=== PATIENT | female | born 1990 | race Caucasian/White ===

== ENCOUNTER → 2016-04-10 | Outpatient (CLI) | payer BC ==
[2016-04-10 16:37] LABS: BASO % 0.3 % (0.0-1.0); EOS % 0.4 % (0.0-3.0); LARGE UNSTAINED CELL # 0.1 K/mm3 (0.0-0.4); LARGE UNSTAINED CELL % 1.5 % (0.0-4.0); LYMPH # 1.9 K/mm3 (1.5-6.5); LYMPH % 19.7 % (24.0-44.0); MEAN CORPUSCULAR HEMOGLOBIN 32.1 pg (27.0-33.0); MEAN CORPUSCULAR HGB CONC 35.6 g/dl (32.0-36.5); MONO # 0.5 K/mm3 (0.0-0.8); NEUTROPHILS # 6.5 K/mm3 (1.8-7.7); PLATELET COUNT, AUTOMATED 358 k/mm3 (150-450); RED CELL DISTRIBUTION WIDTH 12.3 % (11.5-14.5)
[2016-04-13 10:39] LABS: HBsAg Prenatal NEGATIVE (NEGATIVE)
[2016-04-13 14:18] LABS: CONTROL LINE INT CTR LINE PRESENT; HIV SCRN NEGATIVE (NEGATIVE); HIV SCRN1 NEGATIVE (NEGATIVE)
== END ==
LOC: M LAB 15:51
PROVIDERS: ATTEND Advanced Practice Midwife
DX: Z34.81 Encounter for supervision of other normal pregnancy, first trimester (principal)

== ENCOUNTER → 2016-06-22 | Outpatient (CLI) | payer BC ==
--- NOTE | 2016-06-23 04:14 | REP ---
Clinical: Anatomical evaluation. Comparison: None . Findings: Examination demonstrates a single live intrauterine in breech presentation. motion is identified by technologist. Placenta is noted posteriorly and grade zero without evidence for placenta previa or abruption. Amniotic fluid volume is normal. Cervix measures 4.3 cm in length and appears closed. No evidence for nuchal cord. Gestational age by LMP 19 weeks 4 days with IVON 11/12/2016 . Gestational age by current measurements 19 weeks 6 days with IVON 11/10/2016 . FHR equals 149 beats per minute. BPD 4.4 cm 19 weeks 2 days HC 17.0 cm 19 weeks 4 days AC 14.4 cm 19 weeks 5 days FL 3.3 cm 20 weeks 1 day HL 3.2 cm 20 weeks 6 days HC/AC ratio 1.18 Estimated weight 319 grams ( 57th percentile). Anatomical assessment demonstrates normal structures including cranium, choroid plexus, cavum, cerebellum/posterior fossa, facial features, lungs, four-chamber heart/ventricular outflow tracts, diaphragm, stomach, cord insertion/three-vessel cord, kidneys/bladder, spine, and extremities. Impression: Single live intrauterine in breech presentation demonstrating appropriate interval growth. Anatomical assessment is complete and normal. Signed by Ben Larry MD 06/23/2016 04:06 A
== END ==
LOC: M RAD 09:59
PROVIDERS: ATTEND Obstetrics & Gynecology
DX: Z34.82 Encounter for supervision of other normal pregnancy, second trimester (principal); Z3A.19 19 weeks gestation of pregnancy

== ENCOUNTER → 2016-08-03 | Outpatient (CLI) | payer BC, OTHER ==
[2016-08-03 13:49] LABS: MEAN CORPUSCULAR HEMOGLOBIN 32.5 pg (27.0-33.0); MEAN CORPUSCULAR HGB CONC 34.9 g/dl (32.0-36.5); RED CELL DISTRIBUTION WIDTH 12.7 % (11.5-14.5)
== END ==
LOC: M LAB 11:40
PROVIDERS: ATTEND Obstetrics & Gynecology
DX: Z34.82 Encounter for supervision of other normal pregnancy, second trimester (principal)

== ENCOUNTER → 2016-08-27 | Outpatient (CLI) | payer BC, OTHER ==
[~2016-08-27] MED LIST: MOTR200T44 PO; PRENTAB31 PO; TYLE325C PO
[2016-08-27 13:32] LABS: FREE T4 0.87 NG/DL (0.76-1.46)
== END ==
LOC: M SMT 09:09
PROVIDERS: ATTEND Advanced Practice Midwife
DX: F41.9 Anxiety disorder, unspecified (principal)

== ENCOUNTER → 2016-10-23 | Outpatient (REF) | payer BC, OTHER, MEDICARE | LOC: M LAB REF 13:07 | PROVIDERS: ATTEND Advanced Practice Midwife | DX: Z34.83 Encounter for supervision of other normal pregnancy, third trimester (principal); Z3A.00 Weeks of gestation of pregnancy not specified ==

== ENCOUNTER → 2016-11-03 | Outpatient (REF) | payer OTHER | LOC: M SFHCCAPE 15:05 | PROVIDERS: ATTEND Physician Assistant | DX: J02.9 Acute pharyngitis, unspecified (principal) ==

== ENCOUNTER 2016-11-17 20:41 | Inpatient (IN) | payer BC, OTHER ==
[~2016-11-17] VITALS: Ht 162.6 cm; Wt 108.0 kg
[2016-11-17] MEDS ORDERED: PENICILLIN G POTASSIUM IV 5 MU in D5W MINI-BAG PLUS 100 ML IV STA ×2 (21:07→22:53)
[2016-11-17 21:28] VITALS: BP 113/63
--- NOTE | 2016-11-17 21:41 | HPE ---
DATE OF ADMISSION: 11/17/2016 REASON FOR ADMISSION: Labor, ruptured membranes. HISTORY OF PRESENT ILLNESS: Ms. Jacinto is a 26-year-old, 1, who presented at 40 weeks 4 days estimated gestational age by her first trimester ultrasound, who presents with complaints of leakage of clear fluid that occurred at 8:30 this evening. She reports irregular contractions. Denies any vaginal bleeding. Her course has been unremarkable. She initiated care in her first trimester and has been appropriate throughout. PHYSICAL EXAMINATION: Vital signs: STABLE. She is afebrile. She has a category 1 tracing. Contractions on tocometer. General appearance: No acute distress. Lungs: Clear to auscultation bilaterally. Cardiovascular: Heart regular rate and rhythm. Abdomen: Gravid. Her estimated weight 3600 grams. Her cervical exam , grossly ruptured. PAST MEDICAL HISTORY: None. PAST SURGICAL HISTORY: None. PAST OBSTETRICAL HISTORY: She is 1. SOCIAL HISTORY: She denies any alcohol, tobacco or drug use during the . MEDICATIONS: - vitamins ALLERGIES: She has no known drug allergies. LABORATORY DATA: Blood type is A positive, antibody screen is negative. Rubella is immune, RPR nonreactive. Hepatitis surface antigen is negative. HIV is negative. Hepatitis C is nonreactive. Chlamydia and Gonorrhea screens are negative. She had a normal 1 hour Glucola. She is Group B streptococcus (GBS) positive. ASSESSMENT: 1. Ms. Jacinto is a 26-year-old 1 at 40 weeks 4 days estimated gestational age with premature rupture of membranes. 2. Reassuring status with a category 1 heart rate tracing. PLAN: Admit to labor and delivery. Complete blood count (CBC), RPR, type and screen. Penicillin for GBS positive. The patient is a good candidate for an epidural. Anticipate spontaneous vaginal delivery. [facility]
[2016-11-17 21:48] LABS: MEAN CORPUSCULAR HEMOGLOBIN 32.7 pg (27.0-33.0); MEAN CORPUSCULAR VOLUME 89.1 fl (80.0-96.0); RED CELL DISTRIBUTION WIDTH 12.2 % (11.5-14.5); WHITE BLOOD COUNT 10.9 K/mm3 (4.0-10.0)
[2016-11-17 22:04] LABS: MEAN CORPUSCULAR HGB CONC 36.7 g/dl (32.0-36.5)
[2016-11-17] MEDS ORDERED: OXYTOCIN DRIP 30 UNITS in APPROPRIATE DILUENT 1 EA IV SCH (23:00)
[2016-11-17] MEDS: LR 1,000 ML IV SCH (23:05)
[2016-11-17 23:22] VITALS: BP 119/59
[2016-11-18] VITALS (35 sets, daily range): BP systolic 97–125; BP diastolic 55–73
[2016-11-18] MEDS ORDERED: PENICILLIN G POTASSIUM IV 2.5 MU in D5W 100 ML IV SCH (01:15)
[2016-11-18] MEDS: PENICILLIN G POTASSIUM IV 2.5 MU in D5W 100 ML IV SCH ×5 (03:17→19:33)
[2016-11-18] MEDS: LR 1,000 ML IV SCH (08:14)
[2016-11-18] MEDS ORDERED: ADACEL/BOOSTRIX VACCINE (DIPHTH/PERTUSS/ACELL/TETANUS)0.5ML SYR (90715) IM ONE (09:00)
[2016-11-18] MEDS: miSOPROStol 50 MCG 1/2 TAB (S0191) PO SCH ×2 (12:45→17:42)
[2016-11-18] MEDS ORDERED: OXYTOCIN DRIP 30 UNITS in APPROPRIATE DILUENT 1 EA IV SCH (22:00)
[2016-11-19] VITALS (53 sets, daily range): BP systolic 78–126; BP diastolic 40–85
[2016-11-19] MEDS: PENICILLIN G POTASSIUM IV 2.5 MU in D5W 100 ML IV SCH ×3 (01:21→08:17)
[2016-11-19] MEDS ORDERED: FENTANYL 2MCG/ML ROPIVACAINE 0.2% IN 0.9% NACL 200ML IVBAG As Ordered ONE (03:23)
[2016-11-19] MEDS ORDERED: EPIDURAL COMMENT XX SCH (03:54)
[2016-11-19] MEDS ORDERED: FENTANYL/ROPIVACAINE/NACL BAG 200 ML EPIDURAL SCH (03:54)
[2016-11-19] MEDS ORDERED: EPIDURAL/PCA KEYS XX PRN (03:54)
[2016-11-19] MEDS ORDERED: REFRIGERATOR IV KEYS XX PRN (03:54)
[2016-11-19] MEDS ORDERED: LACTATED RINGER'S 1000 ML IV PRN (03:54)
[2016-11-19] MEDS ORDERED: NALOXONE INJ 0.4 MG/1 ML VIAL (J2310) IV PRN (03:54)
[2016-11-19] MEDS ORDERED: ONDANSETRON 4MG/2ML VIAL (J2405) IV PRN ×2 (03:54→11:30)
[2016-11-19] MEDS ORDERED: diphenhydrAMINE INJ 50MG/ML VIAL (J1200) IV PRN (03:54)
[2016-11-19] MEDS ORDERED: ePHEDrine SULFATE 25 MG/5 ML(5MG/ML) SYRINGE As Ordered ONE (04:36)
[2016-11-19] MEDS: ePHEDrine SULFATE 25 MG/5 ML(5MG/ML) SYRINGE IV PRN ×3 (04:45→06:05)
[2016-11-19] MEDS: LR 1,000 ML IV SCH ×3 (08:17→16:35)
[2016-11-19] MEDS ORDERED: RHOGAM 300 MCG (1500 IU) INJ (J2790) IM SCH (09:00)
[2016-11-19] MEDS ORDERED: MEASLES,MUMPS,RUBELLA VACCINE INJ (MMR-II) (90707) SC SCH (09:00)
[2016-11-19] MEDS ORDERED: OXYTOCIN DRIP 30 UNITS in APPROPRIATE DILUENT 1 EA IV SCH (11:27)
[2016-11-19] MEDS ORDERED: DIBUCAINE 1% OINTMENT 30GM TOP PRN (11:30)
[2016-11-19] MEDS ORDERED: PROMETHAZINE 25 MG TAB PO PRN (11:30)
[2016-11-19] MEDS ORDERED: ACETAMINOPHEN 500 MG TAB PO PRN (11:30)
[2016-11-19] MEDS ORDERED: DOCUSATE SODIUM 100 MG CAP PO PRN (11:30)
[2016-11-19] MEDS: IBUPROFEN 800 MG TAB PO PRN ×2 (13:14→23:19)
[2016-11-19] MEDS: PRENATAL VITAMINS CHEWABLE TABLET PO SCH (16:22)
[2016-11-20] MEDS: LR 1,000 ML IV SCH ×2 (03:00→07:31)
[2016-11-20 06:44] VITALS: BP 105/54
[2016-11-20] MEDS: IBUPROFEN 800 MG TAB PO PRN ×2 (08:04→17:50)
[2016-11-20] MEDS: PRENATAL VITAMINS CHEWABLE TABLET PO SCH (08:04)
[2016-11-20 18:15] VITALS: BP 108/63
[2016-11-21 06:00] VITALS: BP 112/56
[2016-11-21] MEDS: IBUPROFEN 800 MG TAB PO PRN (08:23)
[2016-11-21] MEDS: PRENATAL VITAMINS CHEWABLE TABLET PO SCH (08:23)
[2016-11-21] MEDS ORDERED: ADACEL/BOOSTRIX VACCINE (DIPHTH/PERTUSS/ACELL/TETANUS)0.5ML SYR (90715) IM ONE (08:30)
[2016-11-21] MEDS ORDERED: INFLUENZA QUADRIVALENT PF VACCINE 0.5ML SYRINGE (90686) IM ONE (08:30)
[2016-11-21] MEDS ORDERED: PRENTAB31 PO (10:42)
[2016-11-21] MEDS ORDERED: TYLE325C PO (10:43)
[2016-11-21] MEDS ORDERED: MOTR200T44 PO (10:43)
== END 2016-11-21 14:25 | disposition home or self-care (01) | DRG 560 ==
LOC: M LDO 20:41 → M LDI 20:54 → M OBS 11-19 14:21
PROVIDERS: ADMIT Obstetrics & Gynecology; ATTEND Obstetrics & Gynecology
PROC: 10E0XZZ Delivery of Products of Conception, External Approach (ICD-10-PCS; principal; 2016-11-19)
PROC: 0HQ9XZZ Repair Perineum Skin, External Approach (ICD-10-PCS; 2016-11-19)
DX: O48.0 Post-term pregnancy (principal); O99.824 Streptococcus B carrier state complicating childbirth; Z37.0 Single live birth; Z3A.40 40 weeks gestation of pregnancy; Z79.899 Other long term (current) drug therapy; O70.0 First degree perineal laceration during delivery; O69.82X0 Labor and delivery complicated by other cord entanglement, without compression, not applicable or unspecified

== ENCOUNTER 2017-01-08 11:05 | Day surgery (SDC) | payer BC, OTHER ==
[~2017-01-08] VITALS: Ht 162.6 cm; Wt 99.7 kg
[2017-01-08] MEDS ORDERED: LR 1,000 ML IV ONE (11:30)
[2017-01-08 12:04] LABS: CONTROL LINE UCG INT CTR LINE PRESENT
[2017-01-08] MEDS ORDERED: MIDAZOLAM INJ 2 MG/2 ML VIAL (J2250) As Ordered ONE (12:58)
[2017-01-08] MEDS ORDERED: fentaNYL 100 MCG/2 ML INJECTION (J3010) As Ordered ONE ×3 (12:58→14:59)
[2017-01-08] MEDS ORDERED: BUPIVACAINE/EPIN 0.25% 30 ML VIAL As Ordered ONE (13:27)
[2017-01-08] MEDS ORDERED: KETOROLAC 60 MG/2 ML VIAL (J1885) As Ordered ONE (14:12)
[2017-01-08] MEDS ORDERED: ROCURONIUM BROMIDE 50 MG/5 ML VIAL/SYRINGE As Ordered ONE (14:12)
[2017-01-08] MEDS ORDERED: ONDANSETRON 4MG/2ML VIAL (J2405) As Ordered ONE ×2 (14:12→14:58)
[2017-01-08] MEDS ORDERED: GLYCOPYRROLATE INJ 0.2 MG/ML 2 ML VIAL As Ordered ONE ×2 (14:12→14:34)
[2017-01-08] MEDS ORDERED: LIDOCAINE 2% INJ 100 MG/5 ML SDV (FOR ANES.) As Ordered ONE (14:12)
[2017-01-08] MEDS ORDERED: dexameTHASONE 4 MG/ML 1ML VIAL (J1100) As Ordered ONE (14:12)
[2017-01-08] MEDS ORDERED: NEOSTIGMINE 10 MG/10 ML VIAL (J2710) As Ordered ONE ×2 (14:12→14:34)
[2017-01-08] MEDS ORDERED: PROPOFOL 200 MG/20 ML VIAL As Ordered ONE (14:12)
[2017-01-08] MEDS ORDERED: PERCOCET 5MG/325MG TAB As Ordered ONE (14:59)
[2017-01-08] MEDS: fentaNYL 100 MCG/2 ML INJECTION (J3010) IV PRN ×4 (15:02→15:18)
[2017-01-08] MEDS: PERCOCET 5MG/325MG TAB PO PRN ×2 (15:07→15:37)
[2017-01-08] MEDS ORDERED: METOCLOPRAMIDE INJ 10MG/2ML VIAL (J2765) IV PRN (15:15)
[2017-01-08] MEDS ORDERED: NORCO, ANEXSIA 5/325MG TABLET (HYDROcodone/ACETAMINOPHEN) PO PRN (15:15)
[2017-01-08] MEDS ORDERED: LR 1,000 ML IV SCH (15:15)
[2017-01-08] MEDS ORDERED: ONDANSETRON 4MG/2ML VIAL (J2405) IV PRN (15:15)
[2017-01-08] MEDS ORDERED: HYDROmorphone HCL 1 MG/ML SYRINGE (J1170) As Ordered ONE (15:47)
[2017-01-08] MEDS: HYDROmorphone HCL 1 MG/ML SYRINGE (J1170) IV PRN ×7 (15:50→16:51)
[2017-01-08 20:00] VITALS: BP 128/58
--- NOTE | 2017-01-10 08:32 | RO ---
DATE OF PROCEDURE: 01/08/2017 PREOPERATIVE DIAGNOSIS: Umbilical hernia. POSTOPERATIVE DIAGNOSIS: Umbilical hernia. PROCEDURE: Laparoscopic umbilical hernia repair. SURGEON: Dr. Rudy Castro ACCESSIONER: None. ANESTHESIA: General. ESTIMATED BLOOD LOSS: 5 mL. COMPLICATIONS: None. INDICATIONS FOR PROCEDURE: The patient is a 26-year-old female who presents with umbilical hernia . Recommendation to proceed with laparoscopic umbilical possible open repair. Risks and the benefits of the procedure are not limited including bleeding, infection, hernia formation, hernia recurrence, damage to surrounding structure, need for further surgery discussed in detail with the patient. Informed was obtained and the procedure was planned. DESCRIPTION OF PROCEDURE: The patient brought back to operating room 6. After sufficient sedation, the abdomen was sterilely prepped and draped. Next a time-out was done to confirm proper patient and proper procedure. Next, a 5 mm incision was made in the left lower quadrant, Veress needle was inserted and the abdomen was insufflated to 50 mmHg. Next, the Veress needle was removed and a 5 mm Optiview port was used to gain access to the abdomen. Once the abdomen was entered, another 5 mm port was placed in the left lower quadrant. Using Enseal, the peritoneum and preperitoneal fat was dissected circumferentially around the hernia defect and the hernia sac was removed. Next a 9 cm round Parietex mesh had #4-0 Vicryl sutures placed in all four corners. It was rolled up and placed inside the abdomen. Trans-fascial sutures were brought out through the abdominal wall using a Myles-Walter needle and tied in place. Two rows of secure strap tacks were then placed around the perimeter of the mesh to hold it flat. The abdomen was then desufflated. Skin incisions were closed with #4-0 Vicryl subcuticular sutures. The abdomen was cleaned and dried. Steri-Strips, 4x4 and tape were applied thus ending the procedure.
== END 2017-01-08 20:00 | disposition home or self-care (01) ==
LOC: M SDC 11:05
PROVIDERS: ATTEND Surgery
DX: K42.9 Umbilical hernia without obstruction or gangrene (principal)
CPT/HCPCS: 49652; 84703; C1781; J0690; J1100; J1170; J1885; J2250; J2405; J2710; J3010

== ENCOUNTER → 2017-02-19 | Outpatient (REF) | payer BC | LOC: M LAB REF 16:41 | PROVIDERS: ATTEND Physician Assistant | DX: J02.9 Acute pharyngitis, unspecified (principal) ==

== ENCOUNTER → 2017-04-13 | Outpatient (REF) | payer BC, OTHER ==
[2017-04-13 17:59] LABS: BASO % 0.5 % (0.0-1.0); EOS # 0.1 10^3/uL (0.0-0.50); EOS % 1.1 % (0.0-3.0); HEMATOCRIT 41.7 % (36.0-47.0); HEMOGLOBIN 14.2 g/dl (12.0-16.0); IMMATURE GRANULOCYTE % 0.3 % (0-3.0); LYMPH # 2.4 10^3/uL (1.5-6.5); LYMPH % 31.9 % (24.0-44.0); MEAN CORPUSCULAR HEMOGLOBIN 29.4 pg (27.0-33.0); MEAN CORPUSCULAR HGB CONC 34.1 g/dl (32.0-36.5); MEAN CORPUSCULAR VOLUME 86.3 fl (80.0-96.0); MONO # 0.7 10^3/uL (0.0-0.8); MONO % 8.6 % (0.0-5.0); NEUTROPHILS # 4.4 10^3/uL (1.8-7.7); NEUTROPHILS % 57.6 % (36.0-66.0); PLATELET COUNT, AUTOMATED 396 10^3/uL (150-450); RED BLOOD COUNT 4.83 10^6/uL (4.00-5.40); RED CELL DISTRIBUTION WIDTH 12.1 % (11.5-14.5); WHITE BLOOD COUNT 7.6 10^3/uL (4.0-10.0)
[2017-04-13 18:26] LABS: ERYTHROCYTE SEDIMENTATION RATE 9 mm/hr (0-20)
[2017-04-13 19:46] LABS: ALBUMIN 4.1 GM/DL (3.2-5.2); ALBUMIN/GLOBULIN RATIO 1.21 (1.00-1.93); ALKALINE PHOSPHATASE 81 U/L (45-117); ALT/SGPT 23 U/L (12-78); ANION GAP 9 MEQ/L (8-16); AST/SGOT 12 U/L (7-37); BILIRUBIN,TOTAL 0.3 MG/DL (0.2-1.0); BLOOD UREA NITROGEN 15 MG/DL (7-18); C REACTIVE PROTEIN QUANTITATIV < 0.30 MG/DL (0.00-0.30); CALCIUM LEVEL 9.2 MG/DL (8.5-10.1); CARBON DIOXIDE LEVEL 27 MEQ/L (21-32); CHLORIDE LEVEL 106 MEQ/L (98-107); CREATININE FOR GFR 0.56 MG/DL (0.55-1.30); GLOMERULAR FILTRATION RATE > 60.0 (>60); GLUCOSE, FASTING 86 MG/DL (70-100); POTASSIUM SERUM 4.3 MEQ/L (3.5-5.1); SODIUM LEVEL 142 MEQ/L (136-145); THYROID STIMULATING HORMONE 0.982 uIU/ML (0.358-3.740); TOTAL PROTEIN 7.5 GM/DL (6.4-8.2)
== END ==
LOC: M SFHCCAPE 12:18
DX: R42 Dizziness and giddiness (principal)
CPT/HCPCS: 84443

== ENCOUNTER → 2017-04-14 | Outpatient (REF) | payer BC, OTHER | LOC: M SFHCCAPE 13:27 | DX: J02.9 Acute pharyngitis, unspecified (principal) ==

== ENCOUNTER → 2017-12-08 | Outpatient (REF) | payer OTHER | LOC: M LAB REF 16:50 | DX: J02.9 Acute pharyngitis, unspecified (principal) | CPT/HCPCS: 87081 ==

== ENCOUNTER 2018-01-11 11:22 | Inpatient (IN) | payer OTHER ==
[2018-01-11 13:01] LABS: HEMATOCRIT 41.1 % (36.0-47.0); HEMOGLOBIN 14.4 g/dl (12.0-15.5); MEAN CORPUSCULAR HEMOGLOBIN 31.5 pg (27.0-33.0); MEAN CORPUSCULAR VOLUME 89.9 fl (80.0-96.0); PLATELET COUNT, AUTOMATED 363 10^3/uL (150-450); RED BLOOD COUNT 4.57 10^6/uL (4.00-5.40); RED CELL DISTRIBUTION WIDTH 11.7 % (11.5-14.5); WHITE BLOOD COUNT 9.1 10^3/uL (4.0-10.0)
[2018-01-11] MEDS: ACETAMINOPHEN TAB 650MG DOSE (2X325MG) PO (13:16)
[2018-01-11 13:44] LABS: ACETAMINOPHEN LEVEL < 2.0 UG/ML (10.0-30.0); ALBUMIN 3.6 GM/DL (3.2-5.2); ALBUMIN/GLOBULIN RATIO 1.09 (1.00-1.93); ALKALINE PHOSPHATASE 91 U/L (45-117); ALT/SGPT 20 U/L (12-78); ANION GAP 8 MEQ/L (8-16); AST/SGOT 12 U/L (7-37); BILIRUBIN,DIRECT < 0.1 MG/DL (0.0-0.2); BILIRUBIN,TOTAL 0.3 MG/DL (0.2-1.0); BLOOD UREA NITROGEN 12 MG/DL (7-18); CALCIUM LEVEL 8.6 MG/DL (8.5-10.1); CARBON DIOXIDE LEVEL 26 MEQ/L (21-32); CHLORIDE LEVEL 109 MEQ/L (98-107); CREATININE FOR GFR 0.53 MG/DL (0.55-1.30); ETHYL ALCOHOL (ETHANOL) < 0.003 % (0.000-0.010); GLOMERULAR FILTRATION RATE > 60.0 (>60); GLUCOSE, FASTING 86 MG/DL (70-100); POTASSIUM SERUM 3.9 MEQ/L (3.5-5.1); SALICYLATE LEVEL 2.2 MG/DL (5.0-30.0); SODIUM LEVEL 143 MEQ/L (136-145); THYROID STIMULATING HORMONE 0.528 uIU/ML (0.358-3.740); TOTAL PROTEIN 6.9 GM/DL (6.4-8.2)
[2018-01-11 13:48] LABS: CONTROL LINE HCG INT CTR LINE PRESENT; HCG, SERUM QUALITATIVE NEGATIVE (NEGATIVE)
[2018-01-11 13:49] LABS: AMPHETAMINES LEVEL URINE NEGATIVE (NEGATIVE); BARBITURATES URINE NEGATIVE (NEGATIVE); BENZODIAZEPINES URINE NEGATIVE (NEGATIVE); CANNABINOIDS URINE NEGATIVE (NEGATIVE); COCAINE METABOLITE URINE NEGATIVE (NEGATIVE); METHADONE URINE NEGATIVE (NEGATIVE); OPIATES URINE NEGATIVE (NEGATIVE); PHENCYCLIDINE URINE NEGATIVE (NEGATIVE)
[2018-01-11] MEDS ORDERED: MAALOX 30 ML SUSP *UDC PO (16:15)
[2018-01-11] MEDS ORDERED: MOM 30ML SUSPENSION UDC PO (16:15)
[2018-01-11] MEDS: traZODone 50 MG TAB PO (21:52)
[2018-01-12] MEDS: CETIRIZINE (ZyrTEC) 10 MG TAB PO (10:53)
[2018-01-12] MEDS: FLUTICASONE PROP 0.05% NASAL SPRAY 16 GM (FLONASE) NARES (11:21)
[2018-01-12] MEDS: ESCITALOPRAM OXALATE 10 MG TAB (LEXAPRO) PO (12:06)
[2018-01-12] MEDS: traZODone 50 MG TAB PO (23:21)
[2018-01-13] MEDS: CETIRIZINE (ZyrTEC) 10 MG TAB PO (09:06)
[2018-01-13] MEDS: ESCITALOPRAM OXALATE 10 MG TAB (LEXAPRO) PO (09:06)
[2018-01-13] MEDS: FLUTICASONE PROP 0.05% NASAL SPRAY 16 GM (FLONASE) NARES (09:06)
[2018-01-13] MEDS: hydrOXYzine 25 MG TAB PO (13:38)
[2018-01-13] MEDS: ACETAMINOPHEN TAB 650MG DOSE (2X325MG) PO (21:50)
[2018-01-13] MEDS: traZODone 50 MG TAB PO (22:28)
[2018-01-14] MEDS: ESCITALOPRAM OXALATE 10 MG TAB (LEXAPRO) PO (08:18)
[2018-01-14] MEDS: CETIRIZINE (ZyrTEC) 10 MG TAB PO (08:18)
[2018-01-14] MEDS: FLUTICASONE PROP 0.05% NASAL SPRAY 16 GM (FLONASE) NARES (08:18)
[2018-01-14] MEDS: ACETAMINOPHEN TAB 650MG DOSE (2X325MG) PO (13:14)
[2018-01-14] MEDS: traZODone 50 MG TAB PO (23:02)
[2018-01-15] MEDS: FLUTICASONE PROP 0.05% NASAL SPRAY 16 GM (FLONASE) NARES (08:31)
[2018-01-15] MEDS: ESCITALOPRAM OXALATE 10 MG TAB (LEXAPRO) PO (08:31)
[2018-01-15] MEDS: CETIRIZINE (ZyrTEC) 10 MG TAB PO (08:31)
[2018-01-15] MEDS: hydrOXYzine 50 MG TAB PO (08:31)
[2018-01-15] MEDS: PROPRANOLOL 10 MG TAB PO (18:55)
[2018-01-15] MEDS: traZODone 50 MG TAB PO (23:25)
[2018-01-16] MEDS: CETIRIZINE (ZyrTEC) 10 MG TAB PO (08:56)
[2018-01-16] MEDS: ESCITALOPRAM OXALATE 10 MG TAB (LEXAPRO) PO (08:56)
[2018-01-16] MEDS: FLUTICASONE PROP 0.05% NASAL SPRAY 16 GM (FLONASE) NARES (08:57)
[2018-01-16] MEDS: PROPRANOLOL 10 MG TAB PO (22:06)
[2018-01-16] MEDS: traZODone 50 MG TAB PO (23:15)
[2018-01-17] MEDS: CETIRIZINE (ZyrTEC) 10 MG TAB PO (08:06)
[2018-01-17] MEDS: ESCITALOPRAM OXALATE 10 MG TAB (LEXAPRO) PO (08:06)
[2018-01-17] MEDS: FLUTICASONE PROP 0.05% NASAL SPRAY 16 GM (FLONASE) NARES (08:06)
[2018-01-17] MEDS: hydrOXYzine 50 MG TAB PO (12:08)
== END 2018-01-17 12:45 | disposition home or self-care (01) | DRG 885 ==
LOC: M ED 11:22 → M ED INP 16:07 → M PSY 18:39
DX: F33.9 Major depressive disorder, recurrent, unspecified (principal); R45.851 Suicidal ideations; F41.1 Generalized anxiety disorder; Z79.899 Other long term (current) drug therapy; Z97.5 Presence of (intrauterine) contraceptive device; H65.93 Unspecified nonsuppurative otitis media, bilateral

== ENCOUNTER 2018-02-25 17:17 | Emergency (ER) | payer OTHER, MEDICAID ==
[~2018-02-25] VITALS: Ht 162.6 cm; Wt 92.7 kg
[~2018-02-25 17:17] MED LIST changes: +ESCI10TA2 PO; +HYDRO50TAB PO; +MIRE1IUD IU; +PROP10TAB PO; +TRAZO50TA PO; +ZOLO50TA PO
[2018-02-25] MEDS ORDERED: LEXA1TAB PO (17:33)
[2018-02-25 19:07] LABS: INFLUENZA A AMPLIFICATION NEGATIVE (NEGATIVE); INFLUENZA B AMPLIFICATION NEGATIVE (NEGATIVE)
[2018-02-25] MEDS ORDERED: AMOX500C PO (19:41)
[2018-02-25] MEDS ORDERED: AMOXICILLIN 500 MG CAP PO ONE (19:45)
[2018-02-25 19:47] VITALS: BP 123/64
== END 2018-02-25 19:51 | disposition home or self-care (01) ==
LOC: M ED 17:17
DX: J02.0 Streptococcal pharyngitis (principal); J35.1 Hypertrophy of tonsils; B34.9 Viral infection, unspecified; Z79.899 Other long term (current) drug therapy; Z97.5 Presence of (intrauterine) contraceptive device

== ENCOUNTER 2018-03-14 05:56 | Day surgery (SDC) | payer MEDICAID, OTHER, SELFPAY ==
[~2018-03-14] VITALS: Ht 162.6 cm; Wt 94.3 kg
[~2018-03-14 05:56] MED LIST changes: +AMOX500C PO; +LEXA1TAB PO
[2018-03-14] MEDS ORDERED: LIDOCAINE W/EPINEPHRINE 1% 20ML VIAL As Ordered ONE (06:55)
[2018-03-14] MEDS ORDERED: BUPIVACAINE/EPIN 0.5% 30 ML VIAL As Ordered ONE (06:56)
[2018-03-14 06:58] LABS: URINE PREG TEST NEGATIVE (NEGATIVE)
[2018-03-14] MEDS ORDERED: LIDOCAINE 2% INJ 100 MG/5 ML SDV (FOR ANES.) As Ordered ONE (07:20)
[2018-03-14] MEDS ORDERED: dexameTHASONE 4 MG/ML 1ML VIAL (J1100) As Ordered ONE (07:20)
[2018-03-14] MEDS ORDERED: fentaNYL 100 MCG/2 ML INJECTION (J3010) As Ordered ONE ×2 (07:20→08:18)
[2018-03-14] MEDS ORDERED: PROPOFOL 200 MG/20 ML VIAL As Ordered ONE (07:20)
[2018-03-14] MEDS ORDERED: ROCURONIUM BROMIDE 50 MG/5 ML VIAL As Ordered ONE (07:20)
[2018-03-14] MEDS ORDERED: MIDAZOLAM INJ 2 MG/2 ML VIAL (J2250) As Ordered ONE (07:21)
[2018-03-14] MEDS ORDERED: ONDANSETRON 4MG/2ML VIAL (J2405) As Ordered ONE (07:58)
[2018-03-14] MEDS ORDERED: PERCOCET 5MG/325MG TAB As Ordered ONE (08:32)
[2018-03-14] MEDS: PERCOCET 5MG/325MG TAB PO PRN ×2 (08:35→09:46)
[2018-03-14] MEDS ORDERED: GLYCOPYRROLATE INJ 0.2 MG/ML 2 ML VIAL As Ordered ONE (08:46)
[2018-03-14] MEDS ORDERED: fentaNYL 100 MCG/2 ML INJECTION (J3010) IV PRN (09:15)
[2018-03-14] MEDS ORDERED: PERCOCET 5MG/325MG TAB PO PRN (09:15)
[2018-03-14] MEDS ORDERED: HYDROMORPHONE HCL 0.5 MG/ 0.5 ML SYRINGE (J1170 PER 1) IV PRN (09:15)
[2018-03-14] MEDS ORDERED: NORCO, ANEXSIA 5/325MG TABLET (HYDROcodone/ACETAMINOPHEN) PO PRN (09:15)
[2018-03-14] MEDS ORDERED: LR 1,000 ML IV SCH ×2 (09:15)
[2018-03-14] MEDS ORDERED: ONDANSETRON 4MG/2ML VIAL (J2405) IV PRN (09:15)
[2018-03-14 10:00] VITALS: BP 113/71
[2018-03-14] MEDS ORDERED: SUGAMMADEX SODIUM 500 MG/5 ML VIAL (BRIDION) As Ordered ONE (10:19)
--- NOTE | 2018-03-14 14:35 | RO ---
DATE OF PROCEDURE: 03/14/2018 PREOPERATIVE DIAGNOSIS: Chronic tonsillitis. POSTOPERATIVE DIAGNOSIS: Chronic tonsillitis. OPERATIVE PROCEDURE: Tonsillectomy. 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 The tonsillar area was infiltrated with lidocaine with epinephrine and Marcaine. Using a Coblator with settings of 6 and 4, the tonsil was dissected free from its bed on both sides. The base and apex and others areas were cauterized with setting of 4 on the Coblator. Minimal blood loss. A nasogastric tube was passed to suction the upper esophagus. The patient tolerated the procedure well and was extubated and transferred to the recovery room in excellent condition.
== END 2018-03-14 10:45 | disposition home or self-care (01) ==
LOC: M SDC 05:56
PROVIDERS: ATTEND Otolaryngology
DX: J35.01 Chronic tonsillitis (principal); F41.9 Anxiety disorder, unspecified; F32.9 Major depressive disorder, single episode, unspecified; E66.9 Obesity, unspecified; Z68.36 Body mass index [BMI] 36.0-36.9, adult; Z79.899 Other long term (current) drug therapy; Z97.5 Presence of (intrauterine) contraceptive device
CPT/HCPCS: 42826; 84703; 88302; J1100; J2250; J2405; J3010

== ENCOUNTER 2018-06-23 07:03 | Day surgery (SDC) | payer MEDICAID, OTHER ==
[~2018-06-23] VITALS: Ht 162.6 cm; Wt 95.9 kg
[~2018-06-23 07:03] MED LIST changes: +CIPRODEX OTIC SUSP 7.5ML As Ordered ONE; +PROP10TA55 PO; -PROP10TAB PO
[2018-06-23 08:06] LABS: URINE PREG TEST NEGATIVE (NEGATIVE)
[2018-06-23] MEDS ORDERED: MIDAZOLAM INJ 2 MG/2 ML VIAL (J2250) As Ordered ONE (08:11)
[2018-06-23] MEDS ORDERED: LR 1,000 ML IV ONE (08:15)
[2018-06-23] MEDS ORDERED: dexameTHASONE 4 MG/ML 1ML VIAL (J1100) As Ordered ONE (08:22)
[2018-06-23] MEDS ORDERED: PROPOFOL 200 MG/20 ML VIAL As Ordered ONE (08:22)
[2018-06-23] MEDS ORDERED: LIDOCAINE 2% INJ 100 MG/5 ML SDV (FOR ANES.) As Ordered ONE (08:22)
[2018-06-23] MEDS ORDERED: fentaNYL 100 MCG/2 ML INJECTION (J3010) As Ordered ONE (08:22)
[2018-06-23] MEDS ORDERED: ONDANSETRON 4MG/2ML VIAL (J2405) As Ordered ONE (08:22)
[2018-06-23] MEDS ORDERED: LR 1,000 ML IV SCH ×2 (08:45)
[2018-06-23] MEDS ORDERED: fentaNYL 100 MCG/2 ML INJECTION (J3010) IV PRN (08:45)
[2018-06-23] MEDS ORDERED: ONDANSETRON 4MG/2ML VIAL (J2405) IV PRN (08:45)
[2018-06-23] MEDS ORDERED: NORCO, ANEXSIA 5/325MG TABLET (HYDROcodone/ACETAMINOPHEN) PO PRN (08:45)
[2018-06-23 09:40] VITALS: BP 122/69
--- NOTE | 2018-06-24 11:29 | RO ---
DATE OF PROCEDURE: 06/23/2018 PREOPERATIVE DIAGNOSES: Recurrent otitis media, eustachian tube obstruction. POSTOPERATIVE DIAGNOSES: Recurrent otitis media, eustachian tube obstruction. OPERATIVE PROCEDURE: Bilateral tympanostomy under general anesthesia. 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 DESCRIPTION OF PROCEDURE: Speculum was placed in the left ear, wax was cleaned, incision made anterior inferior and a T tube was placed. Ciprodex drops were placed in the ear. The same procedure and findings were carried out on the opposite side. The patient tolerated the procedure well and transferred to the recovery room in excellent condition.
== END 2018-06-23 09:46 | disposition home or self-care (01) ==
LOC: M SDC 07:03
PROVIDERS: ATTEND Otolaryngology
DX: H65.23 Chronic serous otitis media, bilateral (principal); H69.90 Unspecified Eustachian tube disorder, unspecified ear; F41.9 Anxiety disorder, unspecified; F32.9 Major depressive disorder, single episode, unspecified; Z88.0 Allergy status to penicillin; Z79.899 Other long term (current) drug therapy; Z97.5 Presence of (intrauterine) contraceptive device
CPT/HCPCS: 69436; 84703; J1100; J2250; J2405; J3010

== ENCOUNTER 2018-11-09 12:19 | Emergency (ER) | payer OTHER ==
[~2018-11-09] VITALS: Ht 160 cm; Wt 100.8 kg
[~2018-11-09 12:19] MED LIST changes: -CIPRODEX OTIC SUSP 7.5ML As Ordered ONE; +HYDR1TAB33 PO; -HYDRO50TAB PO; +TRAZ1TAB10 PO; -TRAZO50TA PO
[2018-11-09] MEDS ORDERED: BUPR150T5 PO (12:50)
[2018-11-09 15:04] VITALS: BP 122/70
== END 2018-11-09 15:15 | disposition home or self-care (01) ==
LOC: M ED 12:19
DX: F41.0 Panic disorder [episodic paroxysmal anxiety] (principal); F41.9 Anxiety disorder, unspecified; F32.9 Major depressive disorder, single episode, unspecified; Z79.899 Other long term (current) drug therapy; Z88.0 Allergy status to penicillin

== ENCOUNTER → 2018-12-01 | Outpatient (REF) | payer OTHER ==
[~2018-12-01] MED LIST changes: +BUPR150T5 PO
[2018-12-01 16:38] LABS: AMORPHOUS SEDIMENT MODERATE (NEGATIVE); APPEARANCE, URINE TURBID (CLEAR); BACTERIA, URINE AUTO NEGATIVE (NEGATIVE); BILIRUBIN, URINE AUTO NEGATIVE (NEGATIVE); BLOOD, URINE BLOOD NEGATIVE (NEGATIVE); COLOR, URINE YELLOW (YELLOW); GLUCOSE, URINE (UA) AUTO NEGATIVE (NEGATIVE); KETONE, URINE AUTO NEGATIVE (NEGATIVE); LEUKOCYTE ESTERASE, URINE AUTO NEGATIVE (NEGATIVE); NITRITE, URINE AUTO NEGATIVE (NEGATIVE); PROTEIN, URINE AUTO NEGATIVE (NEGATIVE); RBC, URINE AUTO 0 /HPF (0-3); SPECIFIC GRAVITY URINE AUTO 1.024 (1.002-1.035); SQUAMOUS EPITHELIAL CELL UR AU 3 /HPF (0-6); UROBILINOGEN, URINE AUTO 0.2 mg/dL (0.0-2.0); WBC, URINE AUTO 0 /HPF (0-3)
== END ==
LOC: M SFHCCAPE 09:47
PROVIDERS: ATTEND Physician Assistant
DX: M54.5 Low back pain (principal)

== ENCOUNTER → 2019-09-07 | Outpatient (REF) | payer OTHER ==
[~2019-09-07] MED LIST changes: +BUPR1TAB52; +SERT50TA29
== END ==
LOC: EEVIPCON 10:16 → M SFHCCLAY 10:16
PROVIDERS: ATTEND Nurse Practitioner Family
DX: R43.0 Anosmia (principal)

== ENCOUNTER 2019-11-06 19:16 | Emergency (ER) | payer OTHER ==
[~2019-11-06] VITALS: Ht 162.6 cm; Wt 102.3 kg
[~2019-11-06 19:16] MED LIST changes: -BUPR1TAB52; -SERT50TA29
[2019-11-06] MEDS ORDERED: BUPR1TAB52 (19:26)
[2019-11-06] MEDS ORDERED: SERT50TA29 (19:26)
[2019-11-06] MEDS ORDERED: METAL LOCK LOOP XX ONE (19:42)
[2019-11-06] MEDS ORDERED: DERMABOND TOPICAL SKIN ADHESIVE TOP ONE (19:45)
[2019-11-06] MEDS ORDERED: BOOSTRIX/ADACEL VACCINE (DIPHTH/PERTUSS/ACELL/TETANUS) 0.5ML SYR IM ONE (20:00)
[2019-11-06 20:04] VITALS: BP 114/58
== END 2019-11-06 20:12 | disposition home or self-care (01) ==
LOC: M ED 19:16
DX: S61.217A Laceration without foreign body of left little finger without damage to nail, initial encounter (principal); W29.0XXA Contact with powered kitchen appliance, initial encounter; Y92.89 Other specified places as the place of occurrence of the external cause; Z79.899 Other long term (current) drug therapy; Z97.5 Presence of (intrauterine) contraceptive device; Z88.0 Allergy status to penicillin

== ENCOUNTER → 2020-01-01 | Outpatient (REF) | payer OTHER ==
[~2020-01-01] MED LIST changes: +BUPR1TAB52; +SERT50TA29
[2020-01-01 17:13] LABS: BASO % 0.4 % (0.0-1.0); EOS # 0.1 10^3/uL (0.0-0.5); EOS % 1.2 % (0.0-3.0); HEMATOCRIT 43.6 % (36.0-47.0); HEMOGLOBIN 14.6 g/dl (12.0-15.5); LYMPH # 2.4 10^3/uL (1.5-5.0); LYMPH % 26.7 % (24.0-44.0); MEAN CORPUSCULAR HEMOGLOBIN 31.2 pg (27.0-33.0); MEAN CORPUSCULAR HGB CONC 33.5 g/dl (32.0-36.5); MEAN CORPUSCULAR VOLUME 93.2 fl (80.0-96.0); MONO # 0.7 10^3/uL (0.0-0.8); MONO % 7.8 % (0.0-5.0); NEUTROPHILS # 5.8 10^3/uL (1.5-8.5); NEUTROPHILS % 63.6 % (36.0-66.0); PLATELET COUNT, AUTOMATED 357 10^3/uL (150-450); RED BLOOD COUNT 4.68 10^6/uL (4.00-5.40); WHITE BLOOD COUNT 9.1 10^3/uL (4.0-10.0)
[2020-01-01 17:28] LABS: ALBUMIN 4.2 GM/DL (3.2-5.2); ALT/SGPT 28 U/L (12-78); BILIRUBIN,TOTAL 0.2 MG/DL (0.2-1.0); BLOOD UREA NITROGEN 13 MG/DL (7-18); CALCIUM LEVEL 9.7 MG/DL (8.5-10.1); CARBON DIOXIDE LEVEL 29 MEQ/L (21-32); CHLORIDE LEVEL 106 MEQ/L (98-107); CREATININE FOR GFR 0.62 MG/DL (0.55-1.30); GLOMERULAR FILTRATION RATE > 60.0 (>60); GLUCOSE, FASTING 83 MG/DL (70-100); POTASSIUM SERUM 4.3 MEQ/L (3.5-5.1); SODIUM LEVEL 139 MEQ/L (136-145); TOTAL PROTEIN 7.4 GM/DL (6.4-8.2)
== END ==
LOC: M SFHCCLAY 14:11
PROVIDERS: ATTEND Physician Assistant
DX: N64.4 Mastodynia (principal); R21 Rash and other nonspecific skin eruption

== ENCOUNTER → 2020-05-02 | Outpatient (REF) | payer OTHER ==
[~2020-05-02] MED LIST changes: +ESCI10TA16 PO; -ESCI10TA2 PO
[2020-05-02 18:17] LABS: HEMATOCRIT 39.4 % (36.0-47.0); HEMOGLOBIN 13.3 g/dl (12.0-15.5); MEAN CORPUSCULAR HEMOGLOBIN 31.2 pg (27.0-33.0); MEAN CORPUSCULAR HGB CONC 33.8 g/dl (32.0-36.5); MEAN CORPUSCULAR VOLUME 92.5 fl (80.0-96.0); PLATELET COUNT, AUTOMATED 325 10^3/uL (150-450); RED BLOOD COUNT 4.26 10^6/uL (4.00-5.40); WHITE BLOOD COUNT 10.2 10^3/uL (4.0-10.0)
[2020-05-02 19:29] LABS: HCG, SERUM QUANTITATIVE 84813 MIU/ML; HEPATITIS C VIRUS ABY INDEX < 0.0 INDEX (<0.8); HIV 1&2 SCREEN CENTAUR NEGATIVE (NEGATIVE)
== END ==
LOC: M LAB REF 16:23
PROVIDERS: ATTEND Obstetrics & Gynecology
DX: Z32.01 Encounter for pregnancy test, result positive (principal)

== ENCOUNTER → 2020-05-10 | Outpatient (CLI) | payer OTHER ==
--- NOTE | 2020-05-10 12:17 | REP ---
INDICATION: W INCONCLUSIVE VIABILITY, UNSP COMPARISON: None. TECHNIQUE: Transabdominal 1st trimester obstetrical ultrasound with color Doppler evaluation. FINDINGS: Single live early intrauterine is appreciated. Gestational sac with yolk sac and pole identified. Festus-rump length of 3.6 cm corresponds to 10 weeks 3 days gestational age with estimated date of delivery 12/03/2020. heart rate equals 157 beats per minute. No gross abnormalities are identified. IMPRESSION: Single live early intrauterine at 10 weeks 3 days gestational age. Complete anatomical assessment should be performed and 19-20 weeks. <Electronically signed by Ben Larry > 05/10/20 [id number]
== END ==
LOC: M RAD 10:55
PROVIDERS: ATTEND Obstetrics & Gynecology
DX: O36.80X0 Pregnancy with inconclusive fetal viability, not applicable or unspecified (principal); Z3A.10 10 weeks gestation of pregnancy

== ENCOUNTER 2020-06-16 21:04 | Emergency (ER) | payer OTHER ==
[~2020-06-16] VITALS: Ht 165.1 cm; Wt 99.4 kg
[2020-06-16 23:34] LABS: BASO % 0.3 % (0.0-1.0); EOS % 0.4 % (0.0-3.0); HEMOGLOBIN 13.3 g/dl (12.0-15.5); LYMPH # 2.2 10^3/uL (1.5-5.0); LYMPH % 21.4 % (24.0-44.0); MEAN CORPUSCULAR HEMOGLOBIN 32.4 pg (27.0-33.0); MEAN CORPUSCULAR VOLUME 92.7 fl (80.0-96.0); MONO # 0.6 10^3/uL (0.0-0.8); MONO % 5.9 % (2.0-8.0); NEUTROPHILS # 7.3 10^3/uL (1.5-8.5); NEUTROPHILS % 71.6 % (36.0-66.0); PLATELET COUNT, AUTOMATED 310 10^3/uL (150-450); WHITE BLOOD COUNT 10.2 10^3/uL (4.0-10.0)
[2020-06-17 00:52] VITALS: BP 111/64
--- NOTE | 2020-06-17 09:35 | ECGEPIP ---
[facility] - ED Test Date: 2020-06-16 Pat Name: BRIDGETTE SALCEDO Department: Room: - Gender: Female Nut Culler: SHALINI : 1990 Requested By: DALE PAULSON Order Number: [id number] Reading MD: Dale Sierra Measurements Intervals Raymond Rate: 69 P: 11 NE: 158 QRS: 28 QRSD: 90 T: 17 QT: 436 QTc: 467 Interpretive Statements Normal sinus rhythm Comparison tracing not on file Electronically Signed on 06-17-2020 9:35:21 EDT by Dale Sierra
== END 2020-06-17 01:28 | disposition home or self-care (01) ==
LOC: M ED 21:04
DX: R51.9 Headache, unspecified (principal); F33.9 Major depressive disorder, recurrent, unspecified; F41.9 Anxiety disorder, unspecified; Z79.899 Other long term (current) drug therapy; Z88.0 Allergy status to penicillin; Z87.891 Personal history of nicotine dependence

== ENCOUNTER → 2020-07-25 | Outpatient (CLI) | payer OTHER ==
--- NOTE | 2020-07-25 16:04 | REP ---
INDICATION: ANATOMY COMPARISON: 05/10/2020 TECHNIQUE: Transabdominal obstetrical ultrasound with color Doppler evaluation. FINDINGS: Examination demonstrates a single live intrauterine in cephalic presentation. motion is identified by technologist. Placenta is noted anterior and grade 1 without evidence for placenta previa or abruption. Amniotic fluid volume is normal. Cervix measures 4.2 cm in length and appears closed.. Gestational age by LMP and 1st U/S 21 weeks 3 days with IVON 12/02/2020. Gestational age by current measurements 21 weeks 3 days with IVON 12/02/2020. FHR equals 153 beats per minute. Estimated weight 433 grams (53rdpercentile). Anatomical assessment demonstrates normal structures including cranium, choroid plexus, cavum, cerebellum/posterior fossa, facial features, lungs, four-chamber heart, diaphragm, stomach, cord insertion, kidneys/bladder, and extremities. Limited evaluation of the cardiac ventricular outflow tracts, spine, and three-vessel cord. IMPRESSION: 1. Single live intrauterine in cephalic presentation demonstrating appropriate estimated weight and growth. 2. Anatomical limitations as noted above may warrant follow-up. No gross abnormalities are identified. <Electronically signed by Ben Larry > 07/25/20 1600
== END ==
LOC: M WHC 13:12
PROVIDERS: ATTEND Advanced Practice Midwife
DX: Z36.89 Encounter for other specified antenatal screening (principal); Z3A.21 21 weeks gestation of pregnancy

== ENCOUNTER → 2020-08-13 | Outpatient (REF) | payer OTHER | LOC: M LAB REF 16:28 | PROVIDERS: ATTEND Advanced Practice Midwife | DX: Z34.82 Encounter for supervision of other normal pregnancy, second trimester (principal) ==

== ENCOUNTER → 2020-08-27 | Outpatient (CLI) | payer OTHER ==
--- NOTE | 2020-08-27 11:11 | REP ---
INDICATION: F/U ANATOMY COMPARISON: 07/25/2020 TECHNIQUE: Transabdominal obstetrical ultrasound with color Doppler evaluation. FINDINGS: Examination demonstrates a single live intrauterine in variable presentation. motion is identified by technologist. Placenta is noted anterior and grade 1 without evidence for placenta previa or abruption. Amniotic fluid volume is normal. Cervix measures 5.1 cm in length and appears closed.. Selected gestational age: 26 weeks 1 day with IVON 12/02/2020. Gestational age by current measurements 26 weeks 2 days with IVON 12/01/2020. FHR equals 142 beats per minute. Estimated weight 924 grams (49thpercentile). Anatomical assessment demonstrates normal structures including cranium, choroid plexus, cavum, cerebellum/posterior fossa, facial profile, lungs, four-chamber heart/ventricular outflow tracts, diaphragm, stomach, cord insertion/three-vessel cord, kidneys/bladder, and extremities. Limited evaluation of the spine again noted. IMPRESSION: Single live intrauterine in variable presentation demonstrating appropriate estimated weight and growth. In conjunction with prior examination anatomical assessment is essentially complete and normal. However, limited images of the spine again noted due to positioning and maternal body habitus. <Electronically signed by Ben Larry > 08/27/20 [id number]
== END ==
LOC: M WHC 09:58
PROVIDERS: ATTEND Advanced Practice Midwife
DX: Z34.82 Encounter for supervision of other normal pregnancy, second trimester (principal); Z3A.26 26 weeks gestation of pregnancy

== ENCOUNTER → 2020-09-04 | Outpatient (CLI) | payer OTHER ==
[2020-09-04 13:08] LABS: HEMATOCRIT 37.7 % (36.0-47.0); HEMOGLOBIN 12.7 g/dl (12.0-15.5); MEAN CORPUSCULAR HEMOGLOBIN 32.1 pg (27.0-33.0); MEAN CORPUSCULAR HGB CONC 33.7 g/dl (32.0-36.5); MEAN CORPUSCULAR VOLUME 95.2 fl (80.0-96.0); PLATELET COUNT, AUTOMATED 301 10^3/uL (150-450); RED BLOOD COUNT 3.96 10^6/uL (4.00-5.40); WHITE BLOOD COUNT 12.4 10^3/uL (4.0-10.0)
== END ==
LOC: M LAB 11:32
PROVIDERS: ATTEND Advanced Practice Midwife
DX: Z36.89 Encounter for other specified antenatal screening (principal); Z3A.00 Weeks of gestation of pregnancy not specified

== ENCOUNTER → 2020-10-30 | Outpatient (REF) | payer OTHER ==
[~2020-10-30] MED LIST changes: +PRENTAB9 PO
== END ==
LOC: M LAB REF 16:50
PROVIDERS: ATTEND Obstetrics & Gynecology
DX: Z36.89 Encounter for other specified antenatal screening (principal)

== ENCOUNTER 2020-11-30 11:14 | Outpatient (CLI) | payer OTHER ==
[~2020-11-30] VITALS: Ht 162.6 cm; Wt 106.5 kg
[~2020-11-30 11:14] MED LIST changes: -PRENTAB9 PO
[2020-11-30 11:32] VITALS: BP 110/57
[2020-11-30] MEDS ORDERED: PRENTAB9 PO (11:45)
[2020-11-30] MEDS ORDERED: HOME MED LIST COMPLETE! XX SCH ×2 (11:45)
[2020-11-30 12:30] VITALS: BP 115/60
[2020-11-30 14:07] VITALS: BP 109/56
== END 2020-11-30 14:50 | disposition home or self-care (01) ==
LOC: M LDO 11:14
PROVIDERS: ATTEND Obstetrics & Gynecology
DX: O47.1 False labor at or after 37 completed weeks of gestation (principal); Z3A.39 39 weeks gestation of pregnancy; Z88.0 Allergy status to penicillin

== ENCOUNTER 2020-12-05 12:02 | Inpatient (IN) | payer OTHER ==
[~2020-12-05] VITALS: Ht 162.6 cm; Wt 106.3 kg
[~2020-12-05 12:02] MED LIST changes: +PRENTAB9 PO
[2020-12-05 12:22] VITALS: BP 137/75
[2020-12-05] MEDS ORDERED: HOME MED LIST COMPLETE! XX SCH (12:30)
--- NOTE | 2020-12-05 14:01 | HPEPDOC ---
Obstetrical History & Physical General Date of Admission Dec 05, 2020 at 13:13 History of Present Illness Pt is a 30 yo female at 40 + 0/7 weeks with EDC of 12/02/20 by LMP and 1st trimester US on 05/10/20 who presents in early stages of labor with regular contractions. She was seen at [facility] this morning and found to be 2cm dilated, and one deceleration was noted. Denies bleeding, fluid loss, abdominal pain. Chief Complaint: Contractions, term Information Provided By: Patient Age: 30 : 2 Term: 1 Pre-term: 0 Abortions: 0 Livin Care Care: Good Care Dating Final EDC: Dec 02, 2020 Final EDC by: LMP, 1st trimester (US) LMP: Feb 26, 2020 Past Medical History Past Obstetrical History : Past Obstetrical History: Multigravida Type of Delivery: Spontaneous Vaginal Del. 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 BREAST: . ABDOMEN: Gravid and non-tender to touch. FETUS: Is vertex (VTX) by sterile vaginal examination (SVE), fetus is vertex (VTX) by [facility]. HEART RATE: Regular rate and rhythm. LUNGS: Clear to auscultation (CTA). EXTREMITIES: No edema. No clonus. Vital Signs/I&O Vital Signs Date Time Temp Pulse Resp B/P (MAP) Pulse Ox O2 Delivery O2 Flow Rate FiO2 12/05/20 12:22 98.2 80 16 137/75 (95) Laboratory Data 24H LABS Laboratory Tests 2 12/05/20 13:15: Serology Scanned Report Hepatitis B Testing Pertinent Laboratoy Data Blood Type: A+ RBC Antibody Screen: Negative HIV: Negative Hepatitis B: Negative Hepatitis C: Negative Rubella: Immune Varicella: Unknown Chlamydia/Gonorrhea: Negative Group B Streptococcus: Negative Anatomy Ultrasound Normal Anatomy: Yes Vaginal Examination Dilation: 2cm Effacement: 50% Assessment Accelerations: Positive Decelerations: None Tocometer Contractions: Yes Frequency: regular Duration: less than 60 seconds Strength: palpated as mild Assessment/Plan Assessment Pt is a 30-year-old G2 para P 1-0-0-1 at 40+0/7 weeks by 10-week ultrasound. Presents to Labor and Delivery (L&D) with regular contractions. Plan Admit and orient. 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 Group B Streptococcus (GBS) negative. Labs and intravenous (IV) per unit protocol. Counseled on Pitocin and induction of labor (IOL). Anticipate [normal spontaneous delivery (). C-S as appropriate. CESAR MACK S-3 Dec 05, 2020 14:01
[2020-12-05] MEDS: miSOPROStol 50MCG 1/2 TABLET PO SCH ×3 (14:32→22:00)
[2020-12-05 14:35] VITALS: BP 113/64
[2020-12-05 15:20] LABS: HEMATOCRIT 38.6 % (36.0-47.0); HEMOGLOBIN 13.2 g/dl (12.0-15.5); MEAN CORPUSCULAR HGB CONC 34.2 g/dl (32.0-36.5); MEAN CORPUSCULAR VOLUME 93.7 fl (80.0-96.0); PLATELET COUNT, AUTOMATED 399 10^3/uL (150-450); RED BLOOD COUNT 4.12 10^6/uL (4.00-5.40); WHITE BLOOD COUNT 14.1 10^3/uL (4.0-10.0)
[2020-12-05 15:55] VITALS: BP 130/60
[2020-12-05 16:31] VITALS: BP 127/71
[2020-12-05 17:34] VITALS: BP 122/77
[2020-12-05 18:35] VITALS: BP 127/62
[2020-12-06] VITALS (35 sets, daily range): BP systolic 98–158; BP diastolic 52–85
[2020-12-06] MEDS: miSOPROStol 50MCG 1/2 TABLET PO SCH ×2 (03:07→06:00)
--- NOTE | 2020-12-06 09:38 | IPNPDOC ---
Text Note Date of Service The patient was seen on 12/06/20. NOTE Progress Has received 4 doses misoprostol Mild irregular UC, Cat I tracing /-2 Start pitocin. VS,Connorbone, I+O VS, Connorbone, I+O Laboratory Tests 12/05/20 14:38 Vital Signs Date Time Temp Pulse Resp B/P (MAP) Pulse Ox O2 Delivery O2 Flow Rate FiO2 12/06/20 07:18 97.3 81 18 117/72 (87) Candace Flores CNM Dec 06, 2020 09:38
[2020-12-06] MEDS ORDERED: OXYTOCIN DRIP 30 UNITS in IV 1 EA IV SCH ×2 (09:40→20:55)
[2020-12-06] MEDS ORDERED: LR 1,000 ML IV SCH (09:40)
[2020-12-06] MEDS ORDERED: PROMETHAZINE INJ 25 MG/ML VIAL (J2550) IV ONE (13:30)
[2020-12-06] MEDS ORDERED: BUTORPHANOL 2 MG/ML INJ (J0595) IV ONE (13:30)
[2020-12-06] MEDS ORDERED: FENTANYL 2MCG/ML ROPIVACAINE 0.2% IN 0.9% NACL 100ML IVBAG As Ordered ONE (16:25)
[2020-12-06] MEDS ORDERED: FENTANYL/ROPIVACAINE/NACL BAG 100 ML EPIDURAL SCH (16:45)
[2020-12-06] MEDS ORDERED: REFRIGERATOR IV KEYS XX PRN (16:45)
[2020-12-06] MEDS ORDERED: diphenhydrAMINE 50MG/ML VIAL (J1200) IV PRN (16:45)
[2020-12-06] MEDS ORDERED: NALOXONE INJ 0.4MG/1ML VIAL (J2310 PER 1MG) IV PRN (16:45)
[2020-12-06] MEDS ORDERED: EPIDURAL COMMENT XX SCH (16:45)
[2020-12-06] MEDS ORDERED: ONDANSETRON 4MG/2ML VIAL IV PRN (16:45)
[2020-12-06] MEDS ORDERED: LACTATED RINGER'S 1000 ML IV PRN (16:45)
[2020-12-06] MEDS ORDERED: ePHEDrine SULFATE 25 MG/5 ML(5MG/ML) SYRINGE IV PRN (16:45)
[2020-12-06] MEDS ORDERED: EPIDURAL/PCA KEYS XX PRN (16:45)
[2020-12-06] MEDS ORDERED: METHYLERGONOVINE MALEATE 0.2 MG TAB PO PRN (20:55)
[2020-12-06] MEDS ORDERED: MOM 30ML SUSPENSION UDC PO PRN (20:55)
[2020-12-06] MEDS ORDERED: DOCUSATE SODIUM 100MG CAPSULE PO PRN (20:55)
[2020-12-06] MEDS ORDERED: DIBUCAINE 1% OINTMENT 30GM TOP PRN (20:55)
[2020-12-06] MEDS ORDERED: ANUSOL HC CREAM 30GM TOP PRN (20:55)
[2020-12-06] MEDS ORDERED: RHOGAM 300 MCG (1500 IU) INJ (J2790) IM SCH (20:55)
[2020-12-06] MEDS ORDERED: IBUPROFEN 800 MG TAB PO PRN (20:55)
[2020-12-06] MEDS ORDERED: MEASLES,MUMPS,RUBELLA VACCINE INJ (MMR-II) (90707) SC SCH (20:55)
--- NOTE | 2020-12-06 21:04 | DNPDOC ---
[facility] Delivery Note Delivery Note DATE OF DELIVERY: 12/06/2020 PREDELIVERY DIAGNOSIS: 40-4/7 weeks' gestation and labor. POST DELIVERY DIAGNOSIS: Delivered. PROCEDURE: Spontaneous vaginal delivery. PROVIDER: Candace Flores CNM ANESTHESIA: Epidural. ESTIMATED BLOOD LOSS: 350 mL. FINDINGS: 7 pound 8 ounce, 3390gm female , Score 9/9, nuchal cord times 1, reduced. DELIVERY SUMMARY: Patient is a 30-year-old 2 now para 2-0-0-2 who was admitted to labor and delivery for induction of labor due to concerns after an office visit. She received misoprostol x4 followed by pitocin and labor did ensue. She utilized an epidural for labor coping. Artificial rupture of membranes, clear fluid @ 1746. Fully dilated 2013. Viable female delivered LEXII after reduction of loose nuchal cord @ 2029, shoulders delivered with ease. Spontaneous respirations, transitioned on maternal abdomen. Cord doubly clamped and cut by FOB under my direction once pulsations ceased. Apgars 9/9. Placenta salinas, intact with 3v cord @ 2041. Fundus firmed with massage and IV premixed pitocin bolus. EBL 350. Cervix, vagina, perineum intact. Sponge, sharp and instrument count correct. Parents are naming their daughter Candace Flores CNM Dec 06, 2020 21:04
[2020-12-07] MEDS: ACETAMINOPHEN TAB 650MG DOSE (2X325MG) PO PRN ×2 (02:47→10:11)
[2020-12-07] MEDS: IBUPROFEN 600MG TAB PO PRN ×2 (05:45→15:16)
[2020-12-07 06:23] VITALS: BP 101/52
[2020-12-07] MEDS ORDERED: BOOSTRIX/ADACEL VACCINE (DIPHTH/PERTUSS/ACELL/TETANUS) 0.5ML SYR IM ONE (09:00)
[2020-12-07] MEDS ORDERED: INFLUENZA QUADRIVALENT PF VACCINE 0.5ML SYRINGE IM ONE (09:00)
[2020-12-07] MEDS: PRENATAL VITAMINS CHEWABLE TABLET PO SCH (10:11)
--- NOTE | 2020-12-07 10:13 | IPNPDOC ---
Progress Note Date of Service: Dec 07, 2020 Day#: 1 Progress Note SUBJECT: Status post . She has been ambulating, voiding spontaneously witho ut issue and tolerating regular diet. Lochia decreasing/minimal. Pain is well- controlled. Denies headache, visual changes, right upper quadrant pain, shortness breath or chest pain. OBJECTIVE: VITAL SIGNS: Within normal limits, afebrile. Alert and oriented times three. Abdomen: Fundus firm at U-2. Soft, NTTP. ASSESSMENT: Status post uncomplicated spontaneous vaginal delivery. Vitals within normal limits, afebrile, hemodynamically stable with no evidence of infection. PLAN: Discharge to home tomorrow Tylenol and Motrin for pain. Routine instructions/precautions reviewed. Routine PP visit in 6 weeks in clinic. VS, I&O, 24H, Fishbone Vital Signs/I&O Vital Signs Date Time Temp Pulse Resp B/P (MAP) Pulse Ox O2 Delivery O2 Flow Rate FiO2 12/07/20 06:23 97.1 80 18 101/52 (68) I&O- Last 24 Hours up to 6 AM 12/07/20 05:59 Intake Total 2411 ml Output Total 850 ml Balance 1561 ml DIMPLE GARCIA DO Dec 07, 2020 10:13
[2020-12-07] MEDS: ACETAMINOPHEN 500 MG TAB PO PRN (17:00)
[2020-12-07 18:12] VITALS: BP 87/54
[2020-12-08] MEDS: ACETAMINOPHEN TAB 650MG DOSE (2X325MG) PO PRN (04:54)
[2020-12-08 06:00] VITALS: BP 112/54
[2020-12-08] MEDS: PRENATAL VITAMINS CHEWABLE TABLET PO SCH (09:04)
[2020-12-08] MEDS: ACETAMINOPHEN 500 MG TAB PO PRN (09:04)
--- NOTE | 2020-12-08 10:32 | IPNPDOC ---
Progress Note Date of Service: Dec 08, 2020 Day#: 2 Progress Note SUBJECT: Status post . She has been ambulating, voiding spontaneously with out issue and tolerating regular diet. Lochia decreasing/minimal. Pain is well- controlled. Denies headache, visual changes, right upper quadrant pain, shortness breath or chest pain. OBJECTIVE: VITAL SIGNS: Within normal limits, afebrile. Alert and oriented times three. Abdomen: Fundus firm at U-2. Soft, NTTP. ASSESSMENT: Status post uncomplicated spontaneous vaginal delivery. Vitals within normal limits, afebrile, hemodynamically stable with no evidence of infection. PLAN: Discharge to home today. Tylenol and Motrin for pain. Routine instructions/precautions reviewed. Routine PP visit in 6 weeks in clinic. VS, I&O, 24H, Fishbone Vital Signs/I&O Vital Signs Date Time Temp Pulse Resp B/P (MAP) Pulse Ox O2 Delivery O2 Flow Rate FiO2 12/08/20 06:00 96.8 66 18 112/54 (73) 100 Room Air DIMPLE GARCIA DO Dec 08, 2020 10:32
[2020-12-08] MEDS: IBUPROFEN 600MG TAB PO PRN (12:00)
== END 2020-12-08 12:45 | disposition home or self-care (01) | DRG 560 ==
LOC: M LDO 12:02 → M LDI 13:13 → M OBS 12-06 23:10
PROVIDERS: ADMIT Specialist; ATTEND Advanced Practice Midwife
PROC: 3E0P7GC Introduction of Other Therapeutic Substance into Female Reproductive, Via Natural or Artificial Opening (ICD-10-PCS; 2020-12-05)
PROC: 10E0XZZ Delivery of Products of Conception, External Approach (ICD-10-PCS; principal; 2020-12-06)
PROC: 10907ZC Drainage of Amniotic Fluid, Therapeutic from Products of Conception, Via Natural or Artificial Opening (ICD-10-PCS; 2020-12-06)
DX: O69.81X0 Labor and delivery complicated by cord around neck, without compression, not applicable or unspecified (principal); Z3A.40 40 weeks gestation of pregnancy; Z37.0 Single live birth

== ENCOUNTER 2022-04-01 15:52 | Emergency (ER) | payer OTHER ==
[~2022-04-01] VITALS: Ht 165.1 cm; Wt 100.0 kg
[~2022-04-01 15:52] MED LIST changes: +BUPR-71 PO; -BUPR150T5 PO
[2022-04-01 16:55] LABS: HEMATOCRIT 43.1 % (36.0-47.0); HEMOGLOBIN 14.7 g/dl (12.0-15.5); MEAN CORPUSCULAR HEMOGLOBIN 31.4 pg (27.0-33.0); MEAN CORPUSCULAR HGB CONC 34.1 g/dl (32.0-36.5); MEAN CORPUSCULAR VOLUME 92.1 fl (80.0-96.0); PLATELET COUNT, AUTOMATED 367 10^3/uL (150-450); RED BLOOD COUNT 4.68 10^6/uL (4.00-5.40); WHITE BLOOD COUNT 12.4 10^3/uL (4.0-10.0)
[2022-04-01] MEDS ORDERED: HOME MED LIST COMPLETE! XX SCH (16:55)
[2022-04-01 17:18] LABS: ETHYL ALCOHOL (ETHANOL) 0.003 % (0.000-0.010)
[2022-04-01 17:19] LABS: ACETAMINOPHEN LEVEL < 2.0 UG/ML (10.0-20.0)
[2022-04-01 17:20] LABS: ALBUMIN 3.9 G/DL (3.2-5.2); ALKALINE PHOSPHATASE 68 U/L (46-116); ALT/SGPT 18 U/L (7.0-40); AST/SGOT 19 U/L (<34); BILIRUBIN,DIRECT < 0.1 MG/DL (<0.4); BILIRUBIN,TOTAL 0.2 MG/DL (0.3-1.2); BLOOD UREA NITROGEN 13 MG/DL (9-23); CALCIUM LEVEL 8.9 MG/DL (8.5-10.1); CARBON DIOXIDE LEVEL 25 MMOL/L (20-31); CHLORIDE LEVEL 108 MMOL/L (98-107); CREATININE FOR GFR 0.52 MG/DL (0.55-1.30); GLOMERULAR FILTRATION RATE > 60.0 (>60); GLUCOSE, FASTING 86 MG/DL (60-100); POTASSIUM SERUM 3.9 MMOL/L (3.5-5.1); SALICYLATE LEVEL < 3.0 MG/DL (<30); SODIUM LEVEL 140 MMOL/L (136-145); TOTAL PROTEIN 6.5 G/DL (5.7-8.2)
[2022-04-01 17:21] LABS: HCG, SERUM QUALITATIVE NEGATIVE (NEGATIVE)
[2022-04-01 17:25] LABS: THYROID STIMULATING HORMONE 0.873 uIU/ML (0.55-4.78)
[2022-04-01 17:29] LABS: AMPHETAMINES LEVEL URINE NEGATIVE (NEGATIVE); BARBITURATES URINE NEGATIVE (NEGATIVE); BENZODIAZEPINES URINE NEGATIVE (NEGATIVE); COCAINE METABOLITE URINE NEGATIVE (NEGATIVE)
[2022-04-01 17:30] LABS: CANNABINOIDS URINE NEGATIVE (NEGATIVE); METHADONE URINE NEGATIVE (NEGATIVE); OPIATES URINE NEGATIVE (NEGATIVE); PHENCYCLIDINE URINE NEGATIVE (NEGATIVE)
[2022-04-01] MEDS ORDERED: LORazepam 0.5 MG TAB PO ONE (19:50)
[2022-04-02] MEDS ORDERED: LORazepam 0.5 MG TAB PO STA (08:37)
[2022-04-02] MEDS ORDERED: LORazepam 2 MG TAB PO STA (19:44)
[2022-04-03] MEDS ORDERED: LORazepam 1 MG TAB PO ONE (10:00)
[2022-04-03] MEDS: SERTRALINE HCL 50 MG TAB PO SCH (12:42)
[2022-04-03] MEDS: hydrOXYzine 50 MG TAB PO PRN (12:43)
[2022-04-04] MEDS ORDERED: buPROPion **XL** TABLET 150MG (WELLBUTRIN XL) PO SCH (09:00)
[2022-04-04] MEDS: SERTRALINE HCL 50 MG TAB PO SCH (09:51)
[2022-04-04] MEDS: hydrOXYzine 50 MG TAB PO PRN ×2 (09:52→19:20)
[2022-04-04] MEDS ORDERED: GABAPENTIN 300 MG CAP PO PRN (14:10)
[2022-04-04 23:58] VITALS: BP 114/65
== END 2022-04-05 00:02 ==
LOC: M ED 15:52
DX: R45.851 Suicidal ideations (principal); F33.1 Major depressive disorder, recurrent, moderate; F17.200 Nicotine dependence, unspecified, uncomplicated; Z88.0 Allergy status to penicillin